=== PATIENT | female | born 1935 | race Caucasian/White ===

== ENCOUNTER 2024-09-12 22:31 | Emergency (ER) | payer MEDICARE, OTHER ==
[~2024-09-12] VITALS: Ht 154.9 cm; Wt 56.3 kg
[2024-09-12 23:25] VITALS: BP 157/70; PULSE 85; RESP 16; TEMP 98.6; O2SAT 98
== END 2024-09-12 23:27 | disposition home or self-care (01) ==
LOC: ER 22:32
DX: S51.812A Laceration without foreign body of left forearm, initial encounter (principal); Z91.041 Radiographic dye allergy status; Z88.8 Allergy status to other drugs, medicaments and biological substances; Z88.2 Allergy status to sulfonamides; Z88.0 Allergy status to penicillin; X58.XXXA Exposure to other specified factors, initial encounter; Y93.89 Activity, other specified; Y92.89 Other specified places as the place of occurrence of the external cause; Y99.8 Other external cause status
CPT/HCPCS: 99281; 99282